=== PATIENT | female | born 1940 | race African-American/Black ===

== ENCOUNTER 2016-08-10 10:46 | Emergency (ER) | payer MEDICARE, BC ==
[2015-02-23 06:18] VITALS: BMI 35.9
[~2016-08-10 10:46] MED LIST: ALBUTEROL2.5 MG/3 M; ASPIRIN 81 MG E81 MG PO; BUMEX 1 MG TAB1 MG PO; CALCIUM 500 + D1 TAB PO; CALCIUM 600+D T1 TA1 PO; CATAPRES0.1 MG PO; DULCOLAX5 MG PO; FISH OIL 1,0001 CA1; GLUCOTROL 5 MG T5 MG PO; K-DUR20 MEQ PO; LEVOXYL100 MCG PO; NORVASC5 MG PO; PRAVACHOL40 MG PO; PROCARDIA XL 3030 MG; PROVENTIL HFA6.7 GM INH; TOPROL XL100 MG PO; VICODIN 5/500 T1 TAB PO; VITAMIN E200 UNI2; XANAX XR0.5 MG PO
== END 2016-08-10 12:38 | disposition home or self-care (01) ==
LOC: D.ER 10:46
DX: I12.9 Hypertensive chronic kidney disease with stage 1 through stage 4 chronic kidney disease, or unspecified chronic kidney disease (principal); N18.9 Chronic kidney disease, unspecified; Z99.2 Dependence on renal dialysis

== ENCOUNTER 2016-08-16 14:12 | Emergency (ER) | payer MEDICARE, BC ==
[2015-02-23 06:18] VITALS: BMI 35.9
[2016-08-16 15:47] LABS: BASOPHILS 0.2 % (0.0-2.0); EOSINOPHILS 0.5 % (0-7); HEMATOCRIT 32.6 % (36.0-48.0); HEMOGLOBIN 10.3 g/dL (12-16); IMMATURE GRANULOCYTES 0.2 % (0-5); LYMPHOCYTES 18.4 % (15-50); MCH 32.9 pg (26.0-34.0); MCHC 31.6 g/dL (31.0-37.0); MCV 104.2 fL (80.0-100.0); MEAN PLATELET VOLUME 10.9 fL (7.4-10.4); MONOCYTES 8.5 % (2-11); NEUTROPHILS 72.2 % (40-80); RBC 3.13 10x6/uL (4.00-5.40); WBC 5.6 10x3/uL (4.8-10.8)
[2016-08-16 16:00] LABS: PLATELET COUNT 162 10x3/uL (130-400)
[2016-08-16 16:17] LABS: ALBUMIN 3.3 g/dL (3.4-5.0); ANION GAP 10.2 mmol/L (8-16); BILIRUBIN - TOTAL 0.25 mg/dL (0.2-1.3); CREATININE - SERUM 3.7 mg/dL (0.6-1.3); POTASSIUM - SERUM 3.2 mmol/L (3.5-5.1); PROTEIN - SERUM 6.6 g/dL (6.4-8.2)
== END 2016-08-16 16:01 | disposition left against medical advice (07) ==
LOC: D.ER 14:12
PROVIDERS: Emergency Medicine
DX: R06.02 Shortness of breath (principal); R05 Cough

== ENCOUNTER 2017-03-18 18:56 | Observation (INO) | payer MEDICARE, BC ==
[~2017-03-18] VITALS: Ht 162.6 cm; Wt 93.9 kg
[2017-03-18 20:00] LABS: BASOPHILS 0.4 % (0-2); EOSINOPHILS 1.4 % (0-7); HEMATOCRIT 35.6 % (36.0-48.0); HEMOGLOBIN 11.8 g/dL (12-16); IMMATURE GRANULOCYTES 0.2 % (0-5); LYMPHOCYTES 15.6 % (15-50); MCH 33.8 pg (26.0-34.0); MCHC 33.1 g/dL (31.0-37.0); MEAN PLATELET VOLUME 11.6 fL (7.4-10.4); MONOCYTES 6.2 % (2-11); NEUTROPHILS 76.2 % (40-80); PLATELET COUNT 211 10x3/uL (130-400); RBC 3.49 10x6/uL (4.00-5.40); RDW 13.1 % (11.5-14.5); WBC 9.4 10x3/uL (4.8-10.8)
[2017-03-18 20:16] LABS: ALBUMIN 3.6 g/dL (3.4-5.0); ANION GAP 12.3 mmol/L (8-16); BILIRUBIN - TOTAL 0.36 mg/dL (0.2-1.3); CARBON DIOXIDE 31.7 mmol/L (21.0-32.0); CREATININE - SERUM 9.3 mg/dL (0.6-1.3); PROTEIN - SERUM 7.4 g/dL (6.4-8.2)
[2017-03-18 20:24] LABS: CALCIUM 12.5 mg/dL (8.5-10.1)
--- NOTE | 2017-03-18 21:57 | NUR ---
REPORT FROM MARIELOS FROM ER. PT TO ARRIVE TO THE FLOOR SHORTLY
[2017-03-18] MEDS ORDERED: SENSIPAR90 MG PO (22:28)
--- NOTE | 2017-03-18 22:28 | NUR ---
PT ARRIVED TO ROOM. HAS MOMENTS OF CONFUSION BUT IS AAO. SEEMS TO NEED EDUCATION ON DIALYSIS. AND ON MEDS. FAMILY IN ROOM. PT HAS D10 INFUSING TO RIGHT ARM IV 75. LEFT ARM RESERVE SIGN ON DOOR. PT DENIES ANY NEEDS. NO S/S OF DISTRESS. WILL CPOC
--- NOTE | 2017-03-18 22:56 | NUR ---
PT BLOOD SUGAR IS 58. PT HAS EATEN HALF A ICE CREAM. ALSO IS INFUSING D10 AT 75. PT HAS CRANBERRY JUICE AT BEDSIDE. AND A JELLO. OFFERED A SANDWINCH. PT STATES SHE HAD A HALF DOWN STAIRS. WILL CPOC
[2017-03-19 00:34] LABS: APPEARANCE CLEAR (CLEAR); BILIRUBIN NEGATIVE (NEGATIVE); COLOR YELLOW (YELLOW); GLUCOSE NEGATIVE (NEGATIVE); KETONE NEGATIVE (NEGATIVE); LEUKOCYTE ESTERASE NEGATIVE (NEGATIVE); NITRITE NEGATIVE (NEGATIVE); PROTEIN 2+ mg/dL (NEGATIVE); UROBILINOGEN NORMAL (NORMAL)
[2017-03-19 00:35] LABS: BACTERIA FEW /hpf (NONE SEEN); EPITHELIAL CELLS 0-5 /hpf (0-5); RED CELLS - URINE 0-5 /hpf (0-5); WHITE CELLS - URINE 0-5 /hpf (0-5)
--- NOTE | 2017-03-19 01:07 | NUR ---
PT BLOOD SUGAR IS 41. JUICE STILL AT BED SIDE. D50 BEING ADMINISTERED. LAB CALLED FOR A STAT GLUCOSE TO VERIFY GLUCOSE. WILL CPOC
--- NOTE | 2017-03-19 02:09 | NUR ---
BLOOD SUGAR 71. GAVE PT MATTHEW. MICHAEL BURKETT COOKIES. AN APPLE SAUCE AND SOME CRANBERRY JUICE. PT STATES SHE WILL EAT SOME. WILL CHECK BACK IN AN HOUR TO CHECK BLOOD SUGAR
[2017-03-19 02:34] VITALS: BP 172/67; BMI 34.7
--- NOTE | 2017-03-19 02:56 | NUR ---
PT BLOOD SUGAR IS 75. PT DENIES ANY PAIN. DENIES ANY NEEDS. NO S/S OF DISTRESS. BED LOW CALL LIGHT WITHIN REACH. WILL CPOC
--- NOTE | 2017-03-19 04:41 | NUR ---
PT BLOOD SUGAR IS 93. STATES SHE FEELS A LITTLE BETTER. PT SITTING ON SIDE OF BED. SAYS SHE VOIDS ALOT THROUGHOUT NIGHT. PT C/O LOWER BACK PAIN AND UPSET STOMACH. PT DENIES ANY NEEDS. NO S/S OF DISTRESS. WILL CONTINUE TO MONITOR
--- NOTE | 2017-03-19 06:03 | NUR ---
PT BLOOD SUGAR IS 87. PT SITTING ON SIDE OF BED WITH LAB DRAWING BLOOD. PT C/O BACK PAIN 5/10 FEELS BETTER THAN IT DID EARLIER. TYLENOL GIVE. PT DENIES ANY NEEDS. NO S/S OF DISTRESS. WILL CPOC
[2017-03-19 06:13] VITALS: BP 157/63
[2017-03-19 06:15] LABS: BASOPHILS 0.2 % (0-2); EOSINOPHILS 2.8 % (0-7); HEMATOCRIT 33.2 % (36.0-48.0); HEMOGLOBIN 11.1 g/dL (12-16); IMMATURE GRANULOCYTES 0.2 % (0-5); LYMPHOCYTES 15.7 % (15-50); MCH 33.5 pg (26.0-34.0); MCHC 33.4 g/dL (31.0-37.0); MCV 100.3 fL (80.0-100.0); MEAN PLATELET VOLUME 11.4 fL (7.4-10.4); MONOCYTES 5.7 % (2-11); NEUTROPHILS 75.4 % (40-80); PLATELET COUNT 222 10x3/uL (130-400); RBC 3.31 10x6/uL (4.00-5.40); RDW 13.2 % (11.5-14.5); WBC 9.1 10x3/uL (4.8-10.8)
[2017-03-19 06:33] LABS: ALBUMIN 3.1 g/dL (3.4-5.0); ANION GAP 12.4 mmol/L (8-16); BILIRUBIN - TOTAL 0.29 mg/dL (0.2-1.3); CALCIUM 11.9 mg/dL (8.5-10.1); CARBON DIOXIDE 30.2 mmol/L (21.0-32.0); CREATININE - SERUM 9.5 mg/dL (0.6-1.3); POTASSIUM - SERUM 3.6 mmol/L (3.5-5.1); PROTEIN - SERUM 6.9 g/dL (6.4-8.2)
--- NOTE | 2017-03-19 06:51 | NUR ---
BLOOD SUGAR IS 73. ASKED PT TO EAT JELLO OR DRINK HER CRANBERRY JUICE. PT STATES SHE WILL. PT DENIES ANY NEEDS. NO S/S OF DISTRESS. WILL CPOC
--- NOTE | 2017-03-19 07:41 | NUR ---
PT BLOOD SUGAR IS NOW 97. PT HAD A JELLO AND A JUICE. PT DENIES ANY NEEDS. NO S/S OF DISTRESS. WILL CPOC
[2017-03-19 08:14] VITALS: BP 170/61
[2017-03-19 12:12] VITALS: BP 173/61
[2017-03-19 12:49] VITALS: Ht 162.6 cm; Wt 93.9 kg
--- NOTE | 2017-03-19 14:21 | NUR ---
ALERT AND ORIENTED X4. RESTING IN BED. FSBS-154. DENIES ANY NEEDS. WAITING FOR DIALYSIS. CONTINUE PLAN OF CARE. BED LOCKED AND LOW. CALL LIGHT IN REACH. TWO SIDERAILS UP.
--- NOTE | 2017-03-19 16:49 | NUR ---
ALERT AND ORIENTED X4. RESTING IN BED. FSBS-164. DECREASE IV FLUID TO 20mL/HR. DENIES ANY NEEDS. BED LOCKED AND LOW. CALL LIGHT IN REACH. TWO SIDERAILS UP.
[2017-03-19 16:54] VITALS: BP 176/67
--- NOTE | 2017-03-19 17:38 | NUR ---
ALERT AND ORIENTED X4. DC D10 IV FLUID PER ORDER. MONITOR FSBS Q4H PER . DENIES ANY NEEDS. BED LOCKED AND LOW. CALL LIGHT IN REACH. TWO SIDERAILS UP.
[2017-03-19 19:30] VITALS: BP 180/68
--- NOTE | 2017-03-19 20:20 | NUR ---
PT RESTING IN BED. PT ASKS IF ABLE TO GO HOME IN THE MORNING. STATES THAT THE DOCTOR SAID SHE COULD. TOLD PT WILL LET HER KNOW SOON I FIND OUT ANY INFORMATION ON IT. PT HAS AN IV TO RIGHT HAND S/L. GLASSES AT BEDSIDE TABLE. PT DENIES ANY OTHER NEEDS. NO S/S OF DISTRESS. BED LOW AND CALL LIGHT WITHIN REACH
--- NOTE | 2017-03-19 22:52 | NUR ---
PT ASLEEP. RESPIRATIONS EVEN AND UNLABORED. NO S/S OF DISTRESS. BED LOW AND CALL LIGHT WITHIN REACH. WILL CPOC
[2017-03-20 01:36] VITALS: BP 159/55
--- NOTE | 2017-03-20 02:03 | NUR ---
PT ASLEEP. RESPIRATIONS EVEN AND UNLABORED. NO S/S OF DISTRESS. BED LOW AND CALL LIGHT WITHIN REACH. WILL CPOC
[2017-03-20 05:29] VITALS: BP 158/61
[2017-03-20 06:13] LABS: BASOPHILS 0.4 % (0-2); EOSINOPHILS 4.5 % (0-7); HEMATOCRIT 31.6 % (36.0-48.0); HEMOGLOBIN 10.7 g/dL (12-16); IMMATURE GRANULOCYTES 0.1 % (0-5); LYMPHOCYTES 23.3 % (15-50); MCH 33.6 pg (26.0-34.0); MCHC 33.9 g/dL (31.0-37.0); MCV 99.4 fL (80.0-100.0); MEAN PLATELET VOLUME 11.4 fL (7.4-10.4); MONOCYTES 6.8 % (2-11); NEUTROPHILS 64.9 % (40-80); PLATELET COUNT 214 10x3/uL (130-400); RBC 3.18 10x6/uL (4.00-5.40); WBC 7.3 10x3/uL (4.8-10.8)
--- NOTE | 2017-03-20 06:19 | NUR ---
PT RESTING IN BED WATCHING TV. PT DENIES ANY NEEDS. NO S/S OF DISTRESS. BED LOW AND CALL LIGHT WITHIN REACH. WILL CPOC
[2017-03-20 06:38] LABS: ANION GAP 13.1 mmol/L (8-16); CALCIUM 11.5 mg/dL (8.5-10.1); CREATININE - SERUM 10.7 mg/dL (0.6-1.3); POTASSIUM - SERUM 4.1 mmol/L (3.5-5.1)
[2017-03-20 08:21] VITALS: BP 133/49
[2017-03-20] MEDS ORDERED: OMEPRAZOLE20 M1 PO (09:47)
--- NOTE | 2017-03-20 11:26 | NUR ---
Patient Name: ADITYA THURMAN Admission Status: ER Accout number: [id number] Admission Date: 03-18-2017 : 1940 Admission Diagnosis: Attending: XAVI Current LOS: 2 Anticipated DC Date: 03-20-2017 Planned Disposition: Home with Home Health Primary Insurance: MEDICARE A & B PLANNED EXTERNAL PROVIDER: [facility] Discharge Planning Comments: * Is the patient Alert and Oriented? Yes 0 * How many steps to enter\exit or inside your home? 4 0 * PCP DR. ASHLEY HURLEY 0 * Pharmacy [facility] 0 * Preadmission Environment Home Alone 0 * ADLs Independent 0 * Equipment Bedside Commode Cane Glucometer Rolling Walker 0 * Other Equipment [facility] - MEDICAL EQUIPMENT PROVIDER PREFERENCE 0 * List name and contact numbers for known caregivers / representatives who currently or will assist patient after discharge: JAIME DUDLEY, ABHISHEKR, 0 * Community resources currently utilized None 0 * Please name any agencies selected above. NONE 0 * Additional services required to return to the preadmission environment? Yes * Can the patient safely return to the preadmission environment? Yes 0 * Has this patient been hospitalized within the prior 30 days at any hospital? No 0 CM SPOKE TO RENAL NURSE MOUNIKA WHO INFORMED CM THAT PT WILL NEED HOME HEALTH FOR DIABETIC DIET EDUCATION AND MEDICATION MANAGEMENT. CM MET WITH PT AND DAUGHTER IN ROOM TO DISCUSS DISCHARGE PLANNING AND NEEDS. PT REPORTS LIVING AT HOME INDEPENDENTLY AND ALONE. PT HAS BEDSIDE COMMODE, CANE, GLUCOMETER AND ROLLING WALKER FROM [facility]. PT HAS NO OUTSIDE SERVICES ASSISTING IN THE HOME. CM DISCUSSED AVAILABILITY OF HOME HEALTH, REHAB SERVICES AND MEDICAL EQUIPMENT. PT WOULD LIKE [facility], CHOICE SIGNED, REPORTS HER DAUGHTER WILL PICK HER UP FOR DISCHARGE HOME. CM CALLED [facility], , SPOKE TO EZIO WHO TOOK REFERRAL INFORMATION, VERFIFIED PT WAS DISCHARGED FROM THEIR SERVICE IN 2014. CM FAXED REFERRAL TO [facility]ARE AT [phone] AND AWAITS ACCEPTANCE DETERMINATION FROM [facility] FOR ADMISSION TOMORROW. PT AND DAUGHTER NOTIFIED IN ROOM. Mangle Roll Operator: Ranjit Phipps
[2017-03-20 12:54] VITALS: BP 109/67
--- NOTE | 2017-03-20 14:06 | NUR ---
ALERT AND ORIENTED X4. RESTING ON BED. FAMILY AT BEDSIDE. DC RT HAND IV TIP INTACT. DISCHARGE INSTRUCTIONS GIVEN VERBALLY AND WRITTEN. DISCHARGE PAPERS SIGNED ON CHART. ESCORT TO RIDE VIA WHEELCHAIR. REMAINS FREE FROM INJURY.
== END 2017-03-20 16:09 | disposition home or self-care (01) ==
LOC: D.ER 18:56 → D.MS 21:43 → D.ER 21:43 → D.M2 21:43 → D.MS 21:43 → D.M2 21:43 → OBSVTIME 21:44 → D.M2 03-20 16:09
PROVIDERS: Family Medicine; Internal Medicine; ADMIT Internal Medicine Nephrology
DX: E11.649 Type 2 diabetes mellitus with hypoglycemia without coma (principal); Z79.84 Long term (current) use of oral hypoglycemic drugs; E11.22 Type 2 diabetes mellitus with diabetic chronic kidney disease; I12.0 Hypertensive chronic kidney disease with stage 5 chronic kidney disease or end stage renal disease; N18.6 End stage renal disease; Z99.2 Dependence on renal dialysis; K21.9 Gastro-esophageal reflux disease without esophagitis; F32.9 Major depressive disorder, single episode, unspecified; F41.9 Anxiety disorder, unspecified; Z87.891 Personal history of nicotine dependence

== ENCOUNTER → 2017-09-18 12:30 | Outpatient (CLI) | payer MEDICARE, BC ==
[2017-03-19 12:49] VITALS: BMI 34.6
[~2017-09-18 12:30] MED LIST changes: +OMEPRAZOLE20 M1 PO; +SENSIPAR90 MG PO
== END | disposition home or self-care (01) ==
LOC: D.US 12:30
DX: M79.605 Pain in left leg (principal); M79.604 Pain in right leg

== ENCOUNTER 2018-02-22 11:42 | Inpatient (IN) | payer MEDICARE, BC ==
[~2018-02-22] VITALS: Ht 162.6 cm; Wt 75.8 kg
--- NOTE | ~2018-02-22 | OP ---
PATIENT NAME: ADITYA THURMAN MEDICAL RECORD: [id number] :38 LOCATION:D.M2 D.2105 ADMISSION DATE:02/22/18 SURGEON: SOREN PHILLIPS MD DATE OF OPERATION: 02/22/2018 PREOPERATIVE DIAGNOSES: 1. End-stage renal disease, on hemodialysis. 2. Clotted left upper extremity AV graft. 3. Hyperkalemia. 4. Diabetes mellitus. POSTOPERATIVE DIAGNOSES: 1. End-stage renal disease, on hemodialysis. 2. Clotted left upper extremity AV graft. 3. Hyperkalemia. 4. Diabetes mellitus. PROCEDURE: Right IJ 15 cm Trialysis catheter placement. SURGEON: Soren Phillips MD REPORT OF PROCEDURE: The patient's right neck was prepped and draped in sterile fashion. Using ultrasound guidance, a total of 5 cc of 1% lidocaine was infused into the surrounding tissues. A needle was used to cannulate the right internal jugular vein and a guidewire was advanced with ease. Over this wire, a dilator was placed followed by the Trialysis catheter. The catheter aspirated nonpulsatile dark blood and flushed easily in all 3 ports. This was sutured into place with 3-0 nylon ties and dressed appropriately. COMPLICATIONS: None. CONDITION: Stable. ANESTHESIA: Local. BLOOD LOSS: Minimal. Procedure done at the bedside. TRANSINT:[id number] Voice Confirmation ID: [id number] DOCUMENT ID: [id number] SOREN PHILLIPS MD at 0801 CC: [id number] DICTATION DATE: 02/22/18 1630 BUTCHER CHICKEN AND FISH: 02/22/18 1707 DIS IN 02/23/18 [facility] [address] [id number]
[2018-02-22 13:11] VITALS: BP 138/58
[2018-02-22 14:14] LABS: BASOPHILS 0.5 % (0-2); EOSINOPHILS 1.4 % (0-7); HEMATOCRIT 33.9 % (36.0-48.0); HEMOGLOBIN 11.1 g/dL (12-16); IMMATURE GRANULOCYTES 0.2 % (0-5); LYMPHOCYTES 17.6 % (15-50); MCH 33.6 pg (26.0-34.0); MCHC 32.7 g/dL (31.0-37.0); MCV 102.7 fL (80.0-100.0); MEAN PLATELET VOLUME 11.6 fL (7.4-10.4); NEUTROPHILS 74.3 % (40-80); RDW 13.5 % (11.5-14.5); WBC 6.7 10x3/uL (4.8-10.8)
[2018-02-22 14:18] LABS: INR 0.99 (0.85-1.17); PROTIME 12.7 SECONDS (11.6-15.0)
[2018-02-22 14:19] LABS: APTT 27.2 SECONDS (22.8-39.4)
[2018-02-22 14:21] LABS: ALBUMIN 3.4 g/dL (3.4-5.0); ANION GAP 13.5 mmol/L (8-16); BILIRUBIN - TOTAL 0.45 mg/dL (0.2-1.3); CALCIUM 9.9 mg/dL (8.5-10.1); CARBON DIOXIDE 31.7 mmol/L (21.0-32.0); CREATININE - SERUM 8.4 mg/dL (0.6-1.3)
[2018-02-22 14:26] LABS: PLATELET COUNT 160 10x3/uL (130-400)
[2018-02-22 14:32] LABS: POTASSIUM - SERUM 6.2 mmol/L (3.5-5.1)
[2018-02-22] MEDS ORDERED: RENVELA800 MG PO (22:26)
[2018-02-22] MEDS ORDERED: SENSIPAR90 MG PO (22:26)
[2018-02-23] VITALS: BP 98/68; BMI 28.7
[2018-02-23 01:15] VITALS: BP 124/51
[2018-02-23 04:00] VITALS: BP 130/53
[2018-02-23 04:47] LABS: BASOPHILS 0.3 % (0-2); EOSINOPHILS 1.6 % (0-7); HEMATOCRIT 32.1 % (36.0-48.0); HEMOGLOBIN 10.3 g/dL (12-16); IMMATURE GRANULOCYTES 0.1 % (0-5); LYMPHOCYTES 15.2 % (15-50); MCH 32.7 pg (26.0-34.0); MCHC 32.1 g/dL (31.0-37.0); MCV 101.9 fL (80.0-100.0); MEAN PLATELET VOLUME 10.9 fL (7.4-10.4); MONOCYTES 6.7 % (2-11); NEUTROPHILS 76.1 % (40-80); PLATELET COUNT 157 10x3/uL (130-400); RBC 3.15 10x6/uL (4.00-5.40); RDW 13.3 % (11.5-14.5); WBC 7.6 10x3/uL (4.8-10.8)
[2018-02-23 04:58] LABS: ANION GAP 12.6 mmol/L (8-16); CALCIUM 9.8 mg/dL (8.5-10.1); CARBON DIOXIDE 29.4 mmol/L (21.0-32.0)
[2018-02-23 05:04] LABS: CREATININE - SERUM 5.9 mg/dL (0.6-1.3)
[2018-02-23 08:05] VITALS: BP 119/63
[2018-02-23 08:31] VITALS: Ht 162.6 cm; Wt 75.8 kg
== END 2018-02-23 09:43 | disposition home or self-care (01) | DRG 314 ==
LOC: D.ER 11:42 → D.EDHOLD 14:57 → D.M2 18:46
PROVIDERS: Emergency Medicine
PROC: 02H633Z Insertion of Infusion Device into Right Atrium, Percutaneous Approach (ICD-10-PCS; principal; 2018-02-22)
PROC: 5A1D70Z Performance of Urinary Filtration, Intermittent, Less than 6 Hours Per Day (ICD-10-PCS; 2018-02-22)
DX: T82.858A Stenosis of other vascular prosthetic devices, implants and grafts, initial encounter (principal); N18.6 End stage renal disease; I12.0 Hypertensive chronic kidney disease with stage 5 chronic kidney disease or end stage renal disease; E11.22 Type 2 diabetes mellitus with diabetic chronic kidney disease; Z99.2 Dependence on renal dialysis; E87.5 Hyperkalemia

== ENCOUNTER 2018-05-06 13:15 | Inpatient (IN) | payer MEDICARE, BC ==
[~2018-05-06] VITALS: Ht 162.6 cm; Wt 73.5 kg
[2018-05-06] VITALS (9 sets, daily range): BP systolic 92–114; BP diastolic 35–74; Ht 162.6 cm; Wt 73.5 kg
--- NOTE | ~2018-05-06 | OP ---
PATIENT NAME: ADITYA THURMAN MEDICAL RECORD: [id number] :38 LOCATION:D.[facility] D.2301 ADMISSION DATE:05/06/18 SURGEON: BEHZAD BRADY MD DATE OF OPERATION: 05/07/2018 PROCEDURES: 1. Left heart catheterization. 2. Selective coronary angiography. 3. Aortofemoral runoff. 4. Abdominal aortography. INDICATION: Increased troponin, non-Q-wave myocardial infarction, coronary artery disease, peripheral vascular disease, and claudication. PROCEDURE IN DETAIL: After informed consent was obtained and after a detailed description of the risks, benefits as well as alternative therapies, the patient elected to proceed with angiogram. The right femoral area was prepped and draped in normal sterile fashion. Right femoral artery was cannulated via modified Seldinger technique with placement of 5-Polish sheath. All catheters exchanged through this sheath. FINDINGS: No left ventriculogram was performed secondary to inability to cross the aortic valve. SELECTIVE CORONARY ANGIOGRAPHY: 1. Left main is with no significant angiographic disease. 2. Left anterior descending has moderate irregularities, but no flow-limiting stenosis. 3. The left circumflex has moderate irregularities, but no flow-limiting stenosis. 4. Right coronary artery has a previously placed stent in the mid vessel. This is widely patent. There is no significant restenosis. No disease elsewise throughout the RCA or its branches. Abdominal aortography was performed. The catheter was pulled down for aortofemoral runoff. Abdominal aortography reveals mild to moderate abdominal aortic irregularities, but no flow-limiting stenosis. No renal artery stenosis. No dissection or aneurysm formation. RIGHT LEG: A. Iliac: The common internal and external iliacs are calcified, tortuous, but no significant stenosis. B. Femoral system: The common and deep femoral are widely patent. Superficial femoral has a long area of total occlusion, reconstitutes in the very distal aspect via collaterals off the deep femoral system. The deep femoral is patent. The popliteal is patent. The infrapopliteal vessels appear to be moderately to severely diffusely diseased, but there is 2-vessel runoff to the foot through the posterior tibial and peroneal. LEFT LEG: A. Iliac: The common internal and external iliacs are calcified, tortuous, but no significant stenosis. B. Femoral system: The common and deep femoral are widely patent. Superficial femoral has a long area of total occlusion, reconstitutes in the very distal aspect via collaterals off the deep femoral system. The deep femoral is patent. OPERATIVE REPORT [id number] ADITYA THURMAN The popliteal is patent. The infrapopliteal vessels appear to be moderately to severely diffusely diseased, but there is 2-vessel runoff to the foot through the posterior tibial and peroneal. OVERALL IMPRESSION: 1. No significant coronary artery disease is present. No significant restenosis of the previously placed stent in the RCA. 2. Severe peripheral vascular disease is present bilaterally with total occlusion of both SFAs with collateral flow from the deep femoral system distally. Continue medical management of the coronary artery disease, peripheral vascular disease, and atrial fibrillation. TRANSINT:[id number] Voice Confirmation ID: [id number] DOCUMENT ID: [id number] BEHZAD BRADY MD at 0923 CC: [id number] DICTATION DATE: 05/07/18 1005 ANALYTICAL SCIENTIST: 05/07/18 1232 DIS IN 05/09/18 [facility] [address] [place] [address]
--- NOTE | ~2018-05-06 | CN ---
PATIENT NAME:ADITYA THURMAN MEDICAL RECORD: [id number] : 38 LOCATION:LE.2301 ADMIT DATE: 05/06/18 ACCOUNT: [id number] CONSULTING PHYSICIAN: BEHZAD BRADY MD REFERRING PHYSICIAN: AMANDA PISANO MD DATE OF CONSULTATION: 05/06/2018 DIAGNOSES: 1. Non-Q-wave myocardial infarction. 2. Atrial fibrillation with rapid ventricular response. 3. End-stage renal failure, on dialysis. 4. Abnormal ECG. 5. Hyperlipidemia. 6. Coronary disease. HISTORY: Ms. Thurman presents with palpitation, shortness of breath, and chest pressure. She has had these symptoms since last . She does have a history of coronary disease, status post previous stenting by Dr. Moreno in the past, none since 2008. She has not had atrial fibrillation. When she presented, she was with atrial fibrillation with rapid ventricular response. She has ST-T changes with ST depression in the lateral leads. Her troponin is mildly elevated. PHYSICAL EXAMINATION: GENERAL APPEARANCE: Well-nourished, well-developed, appears stated age. Level of distress, comfortable. PSYCHIATRIC: Mental status, alert, normal affect. Orientation, oriented to time, place and person. EYES: Lids and conjunctiva, noninjected. No discharge, no pallor. ENT: Lips, teeth, gums, normal dentition. Oropharynx, no cyanosis, no pallor. NECK: Carotid arteries, bilateral normal upstroke, no bruits, no thrills. JUGULAR VEINS: No jugular venous pressure or distention. CERVICAL LYMPH NODES: Nontender, nonenlarged. THYROID: Not enlarged. Nontender. No nodules. LUNGS: Respiratory effort, unlabored. CHEST: Normal curvature. No thoracic deformity. No chest wall tenderness. Percussion, resonant. Auscultation, clear. No wheezes, no rales, no rhonchi. CARDIOVASCULAR: Precordial exam, nondisplaced. No heaves or pericardial thrills. Rate and rhythm, regular. Heart sounds, normal S1, normal S2. No S3, no gallop, no rub. Systolic murmur, not heard. Diastolic murmur, not heard. EXTREMITIES: No cyanosis, no edema. Peripheral pulses, full and equal in all extremities, except as noted. No bruits appreciated. ABDOMEN: Soft, nondistended. Normal aorta. No bruit. Nontender. No masses. Liver, nontender, no hepatomegaly. Spleen, nontender, no splenomegaly. MUSCULOSKELETAL: No joint tenderness. No joint swelling. No erythema. NEUROLOGICAL: Normal gait, normal strength, normal tone. SKIN: Warm and dry. OVERALL IMPRESSION: Non-Q-wave myocardial infarction and atrial fibrillation with rapid ventricular response. We will start her on sotalol. She is already on Cardizem drip. We will start her on sotalol 80 mg b.i.d. and load her with Plavix. Plan for cardiac catheterization tomorrow. TRANSINT:[id number] Voice Confirmation ID: [id number] DOCUMENT ID: [id number] CONSULT REPORT [id number] ADITYA THURMAN, BEHZAD FRANCES at 0923 CC: [id number] DICTATION DATE: 05/06/18 1612 BURGLAR ALARM MECHANIC: 05/06/18 1644 DIS IN 05/09/18 [id number] [place] [address]
--- NOTE | ~2018-05-06 | DS ---
PATIENT:ADITYA THURMAN :36 MEDICAL RECORD: [id number] DISCHARGE SUMMARY ADMISSION DATE: 05/06/18 DISCHARGE DATE: 05/09/18 DATE OF DISCHARGE: 05/07/2018 DISCHARGE DIAGNOSES: 1. Non-Q-wave myocardial infarction -- demand ischemia. 2. Atrial fibrillation with rapid ventricular response. 3. Coronary artery disease. 4. Peripheral vascular disease. 5. Claudication. HOSPITAL COURSE: Mrs. Thurman presents with shortness of breath and AFib with rapid ventricular response. She was given a Cardizem drip as well as started on p.o. sotalol, she converted to sinus rhythm. She did have an increased troponin. She has a history of coronary artery disease; however, cardiac catheterization revealed wide patency of her previously placed stent. No new disease elsewise. Her increased troponin was due to demand ischemia. We did an aortofemoral runoff as well. She has total occlusion of both SFAs, but good collateral circulation off the deep femoral system. We will continue medical management of the peripheral vascular disease, coronary artery disease and atrial fibrillation. She will follow up with [facility] in 1 month. TRANSINT:[id number] Voice Confirmation ID: [id number] DOCUMENT ID: [id number] BEHZAD BRADY MD at 0923 CC: [id number] DICTATION DATE: 05/07/18958 ROLL BUCKER: 05/07/182048 DIS IN 05/09/18 [address] [place] [address]
--- NOTE | ~2018-05-06 | HEMODYNAMI ---
PATIENT:ADITYA THURMAN MEDICAL RECORD: [id number] : 36 [facility] [facility] [id number] ADMISSION DATE: 05/06/18 Generatedon:05/07/20189:59 Patient name: ADITYA TUHRMAN Patient #: [id number] SSN: : 1940 Date of study: 05/07/2018 Page: Of Hemodynamic Procedure Report Patient Data Patient Demographics Procedure consent was obtained First Name: ADITYA Gender: Female Last Name: OLMAN : 1940 [facility] Initial: J Age: 78 year(s) Patient #: [id number] Race: Black Additional ID: [id number] Contact details Address: [address] [place] [address] State: [place] City: [facility] Zip code: [address] Past Medical History Allergies: No known allergies Admission Admission Data Admission Date: 05/06/2018 Admission Time: 16:55 Room #: D.2118 Lab Results Lab Result Date: 05/07/2018 Lab Result Time: 5:30 Biochemistry Name Units Result Min Max BUN mg/dl 29 --(----)-* 7 18 Creatinine mg/dl 5.7 --(----)-* 0.6 1.3 CBC Name Units Result Min Max Hematocrit % 31.1 *-(----)-- 42 54 Hemoglobin g/dl 9.9 *-(----)-- 13.5 17.5 Procedure Procedure Types Cath Procedure Diagnostic Procedure LHC LH w/Coronaries Sedation Charges Moderate Sedation up to 15 minutes Peripheral Cath Diagnostic Procedure Vrt Mechanic Peripheral Procedures Nexsx-Jdjvefv-Wwh-Off Procedure Description Procedure Date Procedure Date: 05/07/2018 Procedure Start Time: 9:37 Procedure End Time: 9:57 Procedure Staff Name Function Dago Vanegas MD Performing Physician Ashlyn Mendoza RT Monitor Paul Lay RN Nurse Neeta Bro RN Nurse Sheng Appiah RT Automatic Screwmaker Bruce Rivers RT Scrub Procedure Data Cath Procedure Fluoroscopy Diagnostic fluoroscopy Total fluoroscopy Time: 5.8 time: 5.8 min min Diagnostic fluoroscopy Total fluoroscopy dose: 593 dose: 593 mGy mGy Contrast Material Contrast Material Type Amount (ml) Isovue 300 99 Entry Location Entry Primary Successful Side Size Upsize Upsize Entry Closure Succes sful Closure Location (Fr) 1 (Fr) 2 (Fr) Remarks Device Remarks Femoral Right 5 Fr Exoseal artery Estimated blood loss: 5 ml Diagnostic catheters Device Type Used For End Catheter Placement MULTIPACK Pigtail 5 Fr LV Angiography catheter MULTIPACK JL 4.0 5Fr Left Coronary catheter Angiography MULTIPACK 3DRC 5Fr Right Coronary catheter Angiography DIAGNOSTIC AR2 MOD 5 Fr Right Coronary catheter ([id number]) Angiography MULTIPACK Pigtail 5 Fr Abdominal catheter aortogram with runoff Procedure Complications No complications Procedure Medications Medication Administration Route Dosage Oxygen etCO2 Nasal cannula 2 l/min Lidocaine 2% added to field 20 Heparin Flush Bag added to field 2 bags (1000units/500ml NS) 0.9% NaCl I.V. Versed I.V. 1 mg Fentanyl I.V. 50 mcg Versed I.V. 1 mg Fentanyl I.V. 50 mcg Hemodynamics Rest HGB: 9.9 (g/dl) Heart Rate: 76 (bpm) Snapshots Pre Cath Intra NCS Post Cath Vital Signs Time Heart Resp SPO2 etCO2 NIBP (mmHg) Rhythm Pain Sedation Rate (ipm) (%) (mmHg) Status Level (bpm) 9:10:53 74 28 100 27.9 127/70(101) NSR 0 (11) 10(A) , No pain 9:15:44 72 26 100 28.6 127/64(105) NSR 0 (11) 10(A) , No pain 9:20:33 71 28 100 28.6 125/67(98) NSR 0 (11) 10(A) , No pain 9:25:15 68 15 99 30 103/60(83) NSR 0 (11) 10(A) , No pain 9:29:56 59 14 98 32 97/56(85) NSR 0 (11) 10(A) , No pain 9:34:38 54 15 98 29.6 94/53(79) NSR 0 (11) 10(A) , No pain 9:39:21 55 16 98 30 101/48(72) NSR 0 (11) 9(A) , No pain 9:44:02 52 11 98 32 97/49(74) NSR 0 (11) 9(A) , No pain 9:48:44 52 11 98 35 85/47(66) NSR 0 (11) 9(A) , No pain 9:53:27 49 19 98 35 77/40(61) NSR 0 (11) 10(A) , No pain 9:58:05 49 17 99 0 81/43(64) NSR 0 (11) 10(A) , No pain Medications Time Medication Route Dose Verified Delivered Reason Notes Effe ctiveness by by 9:19:07 Oxygen etCO2 2 Dago Buffie used for Nasal l/min Guilherme Lay RN procedure cannula 9:19:14 Lidocaine 2% added 20ml Dago Dago for local to vial Guilherme Vanegas MD anesthetic field 9:19:20 Heparin Flush added 2 Dago Dago used for Bag to bags Guilherme Vanegas MD procedure (1000units/500ml field NS) 9:19:31 0.9% NaCl I.V. kvo Dago Buffie Per ml/hr Guilherme Lay RN physician 9:30:59 Versed I.V. 1 mg Dago Buffie for Guilherme Lay RN sedation 9:31:05 Fentanyl I.V. 50 Dago Buffie for mcg Guilherme Lay RN sedation 9:37:13 Versed I.V. 1 mg Dago Buffie for Guilherme Lay RN sedation 9:37:19 Fentanyl I.V. 50 Dago Burksie for mcg Guilherme Lay RN sedation Procedure Log Time Note 8:42:16 Time tracking: Regular hours (M-F 7:00 - 5:00) 8:42:20 Plan of Care:Hemodynamics will remain stable., Cardiac rhythm will remain stable., Comfort level will be maintained., Respiratory function will remain adequate., Patient/ family verbilizes understanding of procedure., Procedure tolerated without complication., Recovers from procedure without complications.. 9:02:37 Sheng MCFARLANE(R) sent for patient. Start room use. 9:04:09 Patient received from PCU to CCL 1 Alert and oriented. Tansferred to table in Supine position. 9:04:10 Warm blankets applied, and bharti hugger turned on for patient comfort. 9:04:11 Correct patient and procedure confirmed by team. 9:04:12 Signed procedure consent form obtained from patient. 9:04:13 ECG and BP/O2 sat monitors applied to patient. 9:04:14 Full Disclosure recording started 9:06:37 Previous problem with sedation/anesthesia? No ? 9:06:39 Snore? Yes 9:06:40 Sleep apnea? No 9:06:41 Deviated septum? No 9:06:41 Opens mouth fully? Yes 9:06:42 Sticks out tongue? Yes 9:06:44 Airway obstruction? No ? 9:06:49 Dentures? Yes partial out 9:06:55 Pre-procedure instructions explained to patient. 9:06:55 Pre-op teaching completed and patient verbalized understanding. 9:06:58 Family in patients room. 9:07:00 Patient NPO since Midnight. 9:07:04 Patient allergic to No known allergies 9:07:06 Is the patient allergic to Iodine/contrast media? No. 9:07:08 Is patient on blood thinner?Yes 9:07:09 ACC The patient was administered the following blood thiners within the last 24 hours: ACCPlavix 9:07:16 Patient diabetic? Yes. 9:07:17 If diabetic: On Metformin? No 9:08:14 Pre procedure: right dorsailis pedis pulse 2+ Normal; easily identifiable; not easily obliterated 9:08:16 Patient pain scale 0/10 ?. 9:08:36 IV patent on arrival in right hand with 0.9% NaCl at O. 9:09:23 Lab Result : BUN 29 mg/dl 9::23 Lab Result : Creatinine 5.7 mg/dl 9:09:23 Lab Result : Hemoglobin 9.9 g/dl 9:09:23 Lab Result : Hematocrit 31.1 % 9:09:25 Lab results completed and on chart. 9:09:28 Right groin area was prepped with chlora-prep and draped in sterile fashion 9:09:28 Alarms reviewed by R. N. 9:09:29 Sharps counted by scrub and verified by R.N. 9:09:32 Use device set Femoral Dx 9:09:34 ACIST Syringe (20760) opened to sterile field. 9:09:34 Bag Decanter (2001S) opened to sterile field. 9:09:35 Medline Cath Pack ([id number]) opened to sterile field. 9:09:35 ACIST Hand Control (41575) opened to sterile field. 9:09:36 ACIST Manifold (24366) opened to sterile field. 9:09:37 Tegaderm 4 x 4 (1626W) opened to sterile field. 9:09:38 SHEATH Prelude 5Fr 0.035 (HNV-0F-89-035) opened to sterile field. 9:09:39 DIAGNOSTIC WIRE .035 260cm J wire (156345) opened to sterile field. 9:09:40 DIAGNOSTIC Multipack 5Fr catheter set ([id number]) opened to sterile field. 9:09:49 Vital chart was started 9:09:50 Baseline sample Acquired. 9:10:03 Rhythm: sinus rhythm 9:19:07 Oxygen 2 l/min etCO2 Nasal cannula was administered by Paul Lay RN; used for procedure; 9:19:14 Lidocaine 2% 20ml vial added to field was administered by Dago Vanegas MD; for local anesthetic; 9:19:20 Heparin Flush Bag (1000units/500ml NS) 2 bags added to field was administered by Dago Vanegas MD; used for procedure; 9:19:31 0.9% NaCl kvo ml/hr I.V. was administered by Paul Lay RN; Per physician; 9:22:17 Zero performed for pressure channel P1 9:29:21 Final Timeout: patient, procedure, and site verified with staff and physician. All members of the team are in agreement. 9:29:24 Right groin site verified by team. 9:29:28 Physical assessment completed. ASA score P 2 - A patient with mild systemic disease as per Dago Vanegas MD. 9:29:33 Sedation plan: IV Moderate Sedation Medication:Versed, Fentanyl 9:30:59 Versed 1 mg I.V. was administered by Paul Lay RN; for sedation; 9:31:05 Fentanyl 50 mcg I.V. was administered by Paul Lay RN; for sedation; 9:31:31 Zero performed for pressure channel P1 9:31:35 Zero performed for pressure channel P1 9:37:01 Procedure started. 9:37:04 Local anesthetic to right femoral artery with Lidocaine 2% by Dago Vanegas MD.INITIAL ACCESS ONLY 9:37:13 Versed 1 mg I.V. was administered by Paul Lay RN; for sedation; 9:37:19 Fentanyl 50 mcg I.V. was administered by Paul Lay RN; for sedation; 9:40:57 A 5 Fr sheath was inserted into the Right Femoral artery 9:42:25 A MULTIPACK Pigtail 5 Fr catheter was advanced over the wire and used for LV Angiography. REMOVED, UNABLE TO CROSS VALVE 9:44:09 A MULTIPACK JL 4.0 5Fr catheter was advanced over the wire and used for Left Coronary Angiography. 9:46:12 Catheter removed. 9:46:25 A MULTIPACK 3DRC 5Fr catheter was advanced over the wire and used for Right Coronary Angiography. REMOVED, UNABLE TO CANNULATE 9:49:01 A DIAGNOSTIC AR2 MOD 5 Fr catheter ([id number]) was advanced over the wire and used for Right Coronary Angiography. 9:50:40 Catheter removed. 9:51:00 A MULTIPACK Pigtail 5 Fr catheter was advanced over the wire and used for Abdominal aortogram with runoff. 9:53:05 Catheter removed. 9:53:18 Procedure type changed to Cath procedure, Diagnostic procedure, LHC, LHC w/Coronaries, Sedation Charges, Moderate Sedation up to 15 minutes, Peripheral Cath Diagnostic Procedure, Vrt Mechanic Peripheral Procedures, Bqdag-Zhwkggd-Lto-Off 9:53:35 Sheath removed intact; hemostasis achieved with Exoseal to the Right Femoral artery. 9:53:39 Procedure ended.(Physican Out) 9:53:54 Fluoroscopy time 05.80 minutes. 9:53:58 Fluoroscopy dose: 593 mGy 9:53:58 Flurop Dose total: 593 9:54:06 Contrast amount:Isovue 300 99ml. 9:54:07 Sharps counted by scrub and verified by R.N. 9:54:09 Insertion/operative site no bleeding no hematoma. 9:54:12 Post-op/insertion site Right Femoral artery dressed using a 4 x 4 and Tegaderm. 9:54:15 Post right femoral artery:stable, clean and dry 9:54:16 Post Procedure Pulses reassessed and unchanged 9:54:27 Post-procedure physical assessment completed. ASA score P 2 - A patient with mild systemic disease as per Dago Vanegas MD. 9:54:29 Post procedure rhythm: unchanged. 9:54:32 Estimated blood loss: 5 ml 9:54:33 Post procedure instruction explained to patient.Patient verbalizes understanding. 9:54:33 Patient needs reinforcement of post procedure teaching. 9:54:35 See physician's report for complete and final results. 9:54:55 Procedure Complication : No complications 9:55:09 EXOSEAL 5Fr (EX500) opened to sterile field. 9:57:30 Procedure and supply charges have been captured, reviewed, submitted and are correct. 9:57:32 Vital chart was stopped 9:57:34 Report given to PCU. 9:57:41 Patient transfered to PCU with Bed. 9:57:45 Procedure ended. 9:57:45 Full Disclosure recording stopped 9:57:50 End room use (Document Last) Device Usage Item Name Manufacture Quantity Catalog Number Hospital Part Current M inimal Lot# / Charge Number Stock Stock Serial# Code ACIST Syringe Acist 1 27237 [id number] 242603 [id number] 2 0 (97213) Medical Systems groSolar Bag Decanter Microtek 1 677403 71729 918388 5 () Medical Inc. Medline Cath Cardinal 1 [id number] 489460 09986 910610 5 Pack Health ([id number]) ACIST Hand Acist 1 80873 563711 176948 318521 5 Control (41178) Medical Systems Inc ACIST Manifold Acist 1 26442 350840 344822 696038 5 (57058) Medical Systems Inc Tegaderm 4 x 4 3M 1 1626W 216459 028062 462307 5 (1626W) SHEATH Prelude Merit 1 UPH-6C-40-035 326348 111351 923170 5 5Fr 0.035 Medical (SBS-1A-49-035) DIAGNOSTIC WIRE [facility] 1 695527 927764 456500 146280 3 0 .035 260cm J wire (549986) DIAGNOSTIC Cardinal 1 [id number] 090494 10317 830265 3 0 Multipack 5Fr Health catheter set ([id number]) MULTIPACK Cardinal 1 229300 5 Pigtail 5 Fr Health catheter MULTIPACK JL Cardinal 1 [id number] 5 4.0 5Fr Health catheter MULTIPACK 3DRC Cardinal 1 184244 5 5Fr catheter Health DIAGNOSTIC AR2 Cardinal 1 [id number] 493236 171596 947470 2 0 MOD 5 Fr Health catheter (679451W) EXOSEAL 5Fr Cardinal 1 EX500 621467 299346 539822 1 0 (EX500) Health Signature Audit [place] Stage Time Signature Unsigned Intra-Procedure 05/07/2018 Ashlyn 9:59:41 AM Counts RT(R) Signatures Monitor : Ashlyn Signature : Counts RT Date : Time : [address] [place] [address]
--- NOTE | ~2018-05-06 | EC ---
PATIENT:ADITYA THURMAN DATE OF SERVICE: 05/06/18 SEX: F MEDICAL RECORD: [id number] DATE OF : 36 LOCATION:[facility] AGE OF PATIENT: 78 ADMISSION DATE: 05/06/18 REFERRING PHYSICIAN: INTERPRETING PHYSICIAN: BEHZAD VANEGAS MD ECHOCARDIOGRAM REPORT ECHO CHARGES 4 ECHO COMPLETE Date: 05/07/18 CLINICAL DIAGNOSIS: AFIB, CONVERTED WITH MEDS, ASSESS EF AND VALVLES ECHOCARDIOGRAPHIC MEASUREMENTS (adult normal given) AC root (d.<3.7cm) 3.2 cm LV Septum d (<1.2 cm> 1.3 cm Valve Excursion 1.3 cm LV Septum (systole) 1.7 cm Left Atria (s.<4.0cm> 4.8 cm LVPW d(<1.2cm) 1.6 cm RV (d.<2.3cm) 4.0 cm LVPW (sytole) 1.8 cm LV diastole(<5.6CM) 6.2 cm MV E-F(>70mm/sec) cm LV systole 5.0 cm LVOT Diameter 1.4 cm MV exc.(>10mm) 1.6 cm Est.ejection fraction (50-75%) % DOPPLER: LVIT cm/sec A 83.0 cm/sec E 88.0 cm/sec LA cm/sec RVSP 71 mmHg LVOT 147 cm/sec AOP1/2T 404 m/s Asc. Ao 509 cm/sec RVOT 72 cm/sec RA cm/sec PA 128 cm/sec AV Gradient Peak 103.5mmHg AV Mean 65.77mmHg AV Area 0.5 cm MV Gradient Peak 4.03 mmHg MV Mean 1.45 mmHg MV Area cm COMMENTS: Coach Builder: 2 RAYSA JONES Aircraft Structural Repairer: 1 Dr. Vanegas TAPE# PACS Pericardial Effusion N DATE OF SERVICE: 05/07/2018 FINDINGS: 1. Left ventricular chamber size is within normal limits. Left ventricular systolic function is lower limits of normal. Ejection fraction 50%. 2. Left atrium is enlarged at 4.8 cm. Right atrium and right ventricular chamber sizes are as well mildly dilated. 3. Valvular structures: Aortic valve demonstrates severe calcific aortic stenosis. The valve area calculates to 0.5 cm-squared and there is a gradient of 103 mm across the valve. The remaining valvular structures have normal ECHOCARDIOGRAM REPORT [id number] THURMANADITYA structure and motion. 4. Doppler interrogation else bowers reveals moderate mitral regurgitation and severe tricuspid regurgitation. No other valvular insufficiency or stenosis. Pulmonary systolic pressure is markedly elevated, estimated at 71 mmHg. 5. No evidence of pericardial effusion or left ventricular thrombus. TRANSINT:[id number] Voice Confirmation ID: [id number] DOCUMENT ID: [id number] BEHZAD VANEGAS MD at 0923 CC: [id number] DICTATION DATE: 05/07/181811 SALES SERVICE ROUTE MANAGER: 05/07/181945 DIS IN 05/09/18 [facility] [address] [place] [address]
[~2018-05-06 13:15] MED LIST changes: +RENVELA800 MG PO
[2018-05-06 14:52] LABS: BASOPHILS 0.4 % (0-2); EOSINOPHILS 1.5 % (0-7); HEMATOCRIT 31.2 % (36.0-48.0); HEMOGLOBIN 9.9 g/dL (12-16); IMMATURE GRANULOCYTES 0.1 % (0-5); LYMPHOCYTES 15.5 % (15-50); MCHC 31.7 g/dL (31.0-37.0); MEAN PLATELET VOLUME 11.8 fL (7.4-10.4); MONOCYTES 7.5 % (2-11); PLATELET COUNT 178 10x3/uL (130-400); RDW 13.8 % (11.5-14.5); WBC 6.8 10x3/uL (4.8-10.8)
[2018-05-06 15:04] LABS: APTT 29.5 SECONDS (22.8-39.4); INR 1.01 (0.85-1.17); PROTIME 12.9 SECONDS (11.6-15.0)
[2018-05-06 15:05] LABS: D-DIMER-QUANTITATIVE 0.9 ug/mLFEU (0.20-0.54)
[2018-05-06 15:22] LABS: ALBUMIN 3.3 g/dL (3.4-5.0); ALKALINE PHOSPHATASE 116 U/L (46-116); ALT (SGPT) 16 U/L (10-68); BILIRUBIN - TOTAL 0.37 mg/dL (0.2-1.3); CALC OSMOLALITY 285 mosm/kg (275-300); CARBON DIOXIDE 28.3 mmol/L (21.0-32.0); CHLORIDE - SERUM 103 mmol/L (98-107); CREATININE - SERUM 4.4 mg/dL (0.6-1.3); GLUCOSE 105 mg/dL (74-106); POTASSIUM - SERUM 3.6 mmol/L (3.5-5.1); PROTEIN - SERUM 6.5 g/dL (6.4-8.2); SODIUM 142 mmol/L (136-145); UREA NITROGEN 20 mg/dL (7-18); eGFR NON AFRICAN AMERICAN 10 mL/min (90-120)
[2018-05-06 15:33] LABS: CKMB 1.6 U/L (0.0-3.6); CREATINE KINASE 54 UL (21-215); MAGNESIUM - SERUM 1.9 mg/dL (1.8-2.4)
[2018-05-06 15:35] LABS: TROPONIN-I 0.561 ng/mL (0.000-0.060)
[2018-05-06 18:01] LABS: CKMB 1.6 U/L (0.0-3.6); CREATINE KINASE 49 UL (21-215)
[2018-05-06 18:22] LABS: TROPONIN-I 0.557 ng/mL (0.000-0.060)
[2018-05-06] MEDS ORDERED: BAYER CHEWABLE81 MG PO (22:07)
[2018-05-07 00:04] LABS: CKMB 1.1 U/L (0.0-3.6); CREATINE KINASE 49 UL (21-215); TROPONIN-I 0.592 ng/mL (0.000-0.060)
[2018-05-07 00:47] VITALS: BP 96/45
[2018-05-07 05:23] VITALS: BP 102/50
[2018-05-07 06:34] LABS: BASOPHILS 0.6 % (0-2); EOSINOPHILS 2.4 % (0-7); HEMATOCRIT 31.1 % (36.0-48.0); HEMOGLOBIN 9.9 g/dL (12-16); IMMATURE GRANULOCYTES 0.1 % (0-5); LYMPHOCYTES 19.7 % (15-50); MCH 32.8 pg (26.0-34.0); MCHC 31.8 g/dL (31.0-37.0); MEAN PLATELET VOLUME 12.4 fL (7.4-10.4); MONOCYTES 7.4 % (2-11); NEUTROPHILS 69.8 % (40-80); PLATELET COUNT 197 10x3/uL (130-400); RBC 3.02 10x6/uL (4.00-5.40); RDW 13.6 % (11.5-14.5); WBC 8.3 10x3/uL (4.8-10.8)
[2018-05-07 06:52] LABS: ALKALINE PHOSPHATASE 142 U/L (46-116); BILIRUBIN - TOTAL 0.35 mg/dL (0.2-1.3); CALCIUM 9.8 mg/dL (8.5-10.1); CARBON DIOXIDE 23.5 mmol/L (21.0-32.0); CHLORIDE - SERUM 101 mmol/L (98-107); CKMB 1.2 U/L (0.0-3.6); CREATINE KINASE 51 UL (21-215); GLUCOSE 113 mg/dL (74-106); SODIUM 139 mmol/L (136-145); THYROID STIMULATING HORMONE 2.48 uIU/mL (0.36-3.74)
[2018-05-07 06:53] LABS: ALT (SGPT) 42 U/L (10-68); CALC OSMOLALITY 284 mosm/kg (275-300); CREATININE - SERUM 5.7 mg/dL (0.6-1.3); POTASSIUM - SERUM 4.5 mmol/L (3.5-5.1); TROPONIN-I 0.478 ng/mL (0.000-0.060); UREA NITROGEN 29 mg/dL (7-18); eGFR NON AFRICAN AMERICAN 8 mL/min (90-120)
[2018-05-07 08:23] VITALS: BP 113/61
[2018-05-07] MEDS ORDERED: BETAPACE 80 MG80 MG PO (14:10)
[2018-05-07 15:54] VITALS: BP 100/55
[2018-05-07 22:50] VITALS: BP 173/101
[2018-05-08] VITALS (7 sets, daily range): BP systolic 73–123; BP diastolic 44–63
[2018-05-08 06:21] LABS: BASOPHILS 0.4 % (0-2); EOSINOPHILS 1.3 % (0-7); HEMATOCRIT 30.5 % (36.0-48.0); HEMOGLOBIN 9.7 g/dL (12-16); IMMATURE GRANULOCYTES 0.3 % (0-5); LYMPHOCYTES 21.1 % (15-50); MCH 32.7 pg (26.0-34.0); MCHC 31.8 g/dL (31.0-37.0); MCV 102.7 fL (80.0-100.0); MEAN PLATELET VOLUME 12.5 fL (7.4-10.4); MONOCYTES 5.8 % (2-11); NEUTROPHILS 71.1 % (40-80); PLATELET COUNT 160 10x3/uL (130-400); RBC 2.97 10x6/uL (4.00-5.40); RDW 13.8 % (11.5-14.5); WBC 7.7 10x3/uL (4.8-10.8)
[2018-05-08 06:42] LABS: ANION GAP 17.6 mmol/L (8-16); BILIRUBIN - TOTAL 0.41 mg/dL (0.2-1.3); CALCIUM 9.3 mg/dL (8.5-10.1); CARBON DIOXIDE 23.3 mmol/L (21.0-32.0); POTASSIUM - SERUM 4.9 mmol/L (3.5-5.1); PROTEIN - SERUM 6.1 g/dL (6.4-8.2)
[2018-05-08 06:46] LABS: CREATININE - SERUM 7.4 mg/dL (0.6-1.3)
[2018-05-09 00:23] LABS: ALBUMIN 2.8 g/dL (3.4-5.0); BILIRUBIN - TOTAL 0.36 mg/dL (0.2-1.3); CALCIUM 8.7 mg/dL (8.5-10.1); CARBON DIOXIDE 19.3 mmol/L (21.0-32.0); CREATININE - SERUM 5.8 mg/dL (0.6-1.3); MAGNESIUM - SERUM 2.7 mg/dL (1.8-2.4); PROTEIN - SERUM 6.4 g/dL (6.4-8.2)
[2018-05-09 00:25] LABS: ANION GAP 20.6 mmol/L (8-16); POTASSIUM - SERUM 5.9 mmol/L (3.5-5.1)
== END 2018-05-09 03:30 ==
LOC: D.ER 13:15 → D.M2 16:55 → D.EDHOLD 16:55 → D.M2 17:21 → D.ICU 05-08 23:45
PROVIDERS: Family Medicine; Internal Medicine Cardiovascular Disease; Internal Medicine Interventional Cardiology
PROC: 4A023N7 Measurement of Cardiac Sampling and Pressure, Left Heart, Percutaneous Approach (ICD-10-PCS; 2018-05-07)
PROC: B4101ZZ Fluoroscopy of Abdominal Aorta using Low Osmolar Contrast (ICD-10-PCS; 2018-05-07)
PROC: B2111ZZ Fluoroscopy of Multiple Coronary Arteries using Low Osmolar Contrast (ICD-10-PCS; principal; 2018-05-07 10:30)
PROC: B2151ZZ Fluoroscopy of Left Heart using Low Osmolar Contrast (ICD-10-PCS; 2018-05-07 10:30)
PROC: 5A1D70Z Performance of Urinary Filtration, Intermittent, Less than 6 Hours Per Day (ICD-10-PCS; 2018-05-08)
PROC: 5A12012 Performance of Cardiac Output, Single, Manual (ICD-10-PCS; 2018-05-09)
PROC: 0BH17EZ Insertion of Endotracheal Airway into Trachea, Via Natural or Artificial Opening (ICD-10-PCS; 2018-05-09)
DX: I48.91 Unspecified atrial fibrillation (principal); I21.A1 Myocardial infarction type 2; N18.6 End stage renal disease; J96.00 Acute respiratory failure, unspecified whether with hypoxia or hypercapnia; I70.92 Chronic total occlusion of artery of the extremities; I12.0 Hypertensive chronic kidney disease with stage 5 chronic kidney disease or end stage renal disease; N25.81 Secondary hyperparathyroidism of renal origin; I35.8 Other nonrheumatic aortic valve disorders; I47.2 Ventricular tachycardia; I46.9 Cardiac arrest, cause unspecified; I25.10 Atherosclerotic heart disease of native coronary artery without angina pectoris; E11.51 Type 2 diabetes mellitus with diabetic peripheral angiopathy without gangrene; I70.213 Atherosclerosis of native arteries of extremities with intermittent claudication, bilateral legs; E11.22 Type 2 diabetes mellitus with diabetic chronic kidney disease; Z99.2 Dependence on renal dialysis; D63.1 Anemia in chronic kidney disease; E11.65 Type 2 diabetes mellitus with hyperglycemia; E78.5 Hyperlipidemia, unspecified; E03.9 Hypothyroidism, unspecified; R00.1 Bradycardia, unspecified; I95.9 Hypotension, unspecified